=== PATIENT | female | born 1950 | race Hispanic/Latino ===

== ENCOUNTER 2017-02-14 10:35 | Emergency (ER) | payer SELFPAY ==
[2017-02-14 10:52] VITALS: RESP 16; TEMP 98; BMI 29.1
[2017-02-14] MEDS ORDERED: Amoxicillin-Clav 875-125 mg Tab PO STA (11:30)
[2017-02-14] MEDS ORDERED: TDAP Vaccine 0.5 mL Syr IM ONE (11:31)
--- NOTE | 2017-02-14 12:26 | ED PDOC ---
Arrival/HPI - General Chief Complaint: Bite Time Seen by Provider: 02/14/17 11:30 Historian: Patient - History of Present Illness Narrative History of Present Illness (Text): 02/14/17 12:21 66yo female with no PMHx present with complaint of dog bite to her right lower leg this morning. States she was bitten by her neighbor's dog and then she fell down and twisted her right ankle. Reports pain to her ankle. States she is not up to date with her TD vaccine. Denies hitting her head anywhere. Denies LOC, focal weakness, dizziness, visual changes, any other complaint. Past Medical History - Provider Review Nursing Documentation Reviewed: Yes - Cardiac Hx Cardiac Disorders: No - Pulmonary Hx Respiratory Disorders: No - Neurological Hx Neurological Disorder: No - HEENT Hx HEENT Disorder: No - Renal Hx Renal Disorder: No - Endocrine/Metabolic Hx Endocrine Disorders: No - Hematological/Oncological Hx Blood Disorders: No - Integumentary Hx Dermatological Disorder: Yes Hx Psoriasis: Yes - Musculoskeletal/Rheumatological Hx Musculoskeletal Disorders: No - Gastrointestinal Hx Gastrointestinal Disorders: No - Genitourinary/Gynecological Hx Genitourinary Disorders: No - Psychiatric Hx Psychophysiologic Disorder: No Hx Substance Use: No - Surgical History Hx Cholecystectomy: Yes Family/Social History - Physician Review Nursing Documentation Reviewed: Yes Family/Social History: Unknown Family HX Smoking Status: Light Smoker < 10 Cigarettes Daily Hx Alcohol Use: No Hx Substance Use: No Allergies/Home Meds Allergies/Adverse Reactions: Allergies caffeine Allergy (Verified 02/14/17 10:47) RASH Review of Systems - Physician Review All systems were reviewed & negative as marked: Yes - Review of Systems Constitutional: Normal Eyes: Normal ENT: Normal Respiratory: Normal Cardiovascular: Normal Gastrointestinal: Normal Genitourinary Female: Normal Musculoskeletal: Arthralgias (Right ankle) Skin: Other (Dog bite to right lower leg) Neurological: Normal Endocrine: Normal Hemo/Lymphatic: Normal Psychiatric: Normal Physical Exam Vital Signs Reviewed: Yes Vital Signs Temp Pulse Resp BP Pulse Ox 02/14/17 13:28 80 16 149/80 98 02/14/17 10:46 98 F 83 16 152/83 H 96 Temperature: Afebrile Blood Pressure: Normal Pulse: Regular Respiratory Rate: Normal Appearance: Positive for: Well-Appearing, Non-Toxic, Comfortable Pain Distress: None Mental Status: Positive for: Alert and Oriented X 3 - Systems Exam Head: Present: Atraumatic, Normocephalic Pupils: Present: PERRL Extroacular Muscles: Present: EOMI Conjunctiva: Present: Normal Mouth: Present: Moist Mucous Membranes Neck: Present: Normal Range of Motion Respiratory/Chest: Present: Clear to Auscultation, Good Air Exchange. No: Respiratory Distress, Accessory Muscle Use Cardiovascular: Present: Regular Rate and Rhythm, Normal S1, S2. No: Murmurs Abdomen: Present: Normal Bowel Sounds. No: Tenderness, Distention, Peritoneal Signs Back: Present: Normal Inspection Upper Extremity: Present: Normal Inspection. No: Cyanosis, Edema Lower Extremity: Present: NORMAL PULSES, Normal ROM, Tenderness (Diffuse right ankle), Swelling (Right lateral ankle), Neurovascularly Intact, Capillary Refill < 2 s. No: Edema, CALF TENDERNESS, Cyanosis, Erythema, Deformity, Temperature Abnormalties Neurological: Present: GCS=15, CN II-XII Intact, Speech Normal Skin: Present: Warm, Dry, Normal Color, Other (Approximately 2.0cm open puncture wound noted on lateral mid right lower leg with surrounding swelling and superfical excoriation noted.). No: Rashes Psychiatric: Present: Alert, Oriented x 3, Normal Insight, Normal Concentration Medical Decision Making ED Course and Treatment: 02/14/17 12:26 Wound was irrigated with high pressure in ED. Bacitracine applied and dressed. Wound approximated with steri strips. Tetanus was given and pt was placed on prophylactic abx. Right ankle xray - No acute fracture noted Clive wrap and air cast placed. Cane given. Advised to RICE ankle Referred to ortho [facility] was notified and they saw pt in ED. Pt states she will verify of dog's rabies vaccine status when she gets home, and then decides if she needs it. She was advised to keep area clean and dry. Advised to f/u with her PMD in 2days for wound check. TRT ED for redness, fever, purulent discharge from the wound. - RAD Interpretation Radiology Orders: 02/14/17 11:30 ANKLE RIGHT 3 VIEWS ROUTINE [RAD] Stat - Medication Orders Current Medication Orders: Discontinued Medications Amoxicillin/Clavulanate Potassium (Augmentin 875 Mg-125 Mg Tab) 1 tab PO STAT STA PRN Reason: Protocol Stop: 02/14/17 11:31 Last Admin: 02/14/17 11:47 Dose: 1 TAB Tetanus/Reduced Diphtheria/Acell Pertussis (Boostrix Vaccine Inj) 0.5 ml IM .ONCE ONE Stop: 02/14/17 11:32 Last Admin: 02/14/17 11:47 Dose: 0.5 ML MAR Immunization Data Document 02/14/17 11:47 HI (Rec: 02/14/17 11:48 HI [id number]) Immunization Data Vaccine Lot Number [id number] Vaccine Expiration Date 01/26/19 Site Given Left Deltoid Tramadol HCl (Ultram) 50 mg PO STAT STA Stop: 02/14/17 11:31 Last Admin: 02/14/17 11:47 Dose: 50 MG Disposition/Present on Arrival - Present on Arrival Any Indicators Present on Arrival: No History of DVT/PE: No History of Uncontrolled Diabetes: No Urinary Catheter: No History of Decub. Ulcer: No History Surgical Site Infection Following: None - Disposition Have Diagnosis and Disposition been Completed?: Yes Diagnosis: Dog bite, Ankle sprain Disposition: HOME/ ROUTINE Disposition Time: 12:30 Patient Plan: Discharge Condition: STABLE Discharge Instructions (ExitCare): Animal Bite (ED), Ankle Sprain (ED) Additional Instructions: Rest, ice, compress and elevate ankle Keep wound clean and dry Follow up with your Doctor in 2days for wound check Return to ED for fever, redness, purulent discharge from wound Prescriptions: Amoxicillin/Clavulanate [Augmentin 875 MG-125 MG] 1 tab PO BID #20 tab Naproxen [Naprosyn] 500 mg PO BID #20 tab Referrals: Aaron BARBOSA,Epifanio Barr MD [Primary Care Provider] - Follow up with primary Kp Rucker III, MD [Medical Doctor] - Follow up with primary Forms: WORK NOTE
--- NOTE | 2017-02-14 12:29 | RAD ---
PROCEDURE: Right Ankle Radiographs. HISTORY: ankle pain COMPARISON: None FINDINGS: BONES: Normal. No fracture. JOINTS: Normal. No osteoarthritis. Ankle mortise maintained. Talar dome intact SOFT TISSUES: Normal. OTHER FINDINGS: None. IMPRESSION: Normal right ankle radiographs.
[2017-02-14 13:32] VITALS: BP 149/80; PULSE 80; O2SAT 98
== END 2017-02-14 13:00 | disposition home or self-care (01) ==
LOC: ED 10:35
DX: S81.851A Open bite, right lower leg, initial encounter (principal); W54.0XXA Bitten by dog, initial encounter; S93.401A Sprain of unspecified ligament of right ankle, initial encounter; W18.30XA Fall on same level, unspecified, initial encounter; Y92.89 Other specified places as the place of occurrence of the external cause; Z23 Encounter for immunization